=== PATIENT | female | born 1965 | race Two or more races ===

== ENCOUNTER → 2025-02-07 | Outpatient (CLI) | payer MEDICAID, SELFPAY ==
--- NOTE | 2025-02-07 15:00 | XR_ITS ---
Examination: PA lateral chest 2 views TECHNIQUE: Upright PA lateral chest 2 views Date and time: February 07, 2025 1518 hours Comparison July 16, 2024 INDICATIONS: Coughing chest pain beginning one week ago. FINDINGS: Normal heart size. Lungs are clear. Osseous structures are intact IMPRESSION: No active disease
== END | disposition home or self-care (01) ==
LOC: CDIM 14:47
DX: R05.3 Chronic cough (principal)
CPT/HCPCS: 71046

== ENCOUNTER 2025-03-14 09:40 | Emergency (ER) | payer MEDICAID, SELFPAY ==
[2025-03-14 09:41] VITALS: BMI 39.0
[2025-03-14 09:48] VITALS: BP 195/77; PULSE 68; RESP 16; TEMP 36.9; O2SAT 97
--- NOTE | 2025-03-14 09:52 | XR_ITS ---
Examination: Duplex scan of the lower extremity, unilateral left Date and time of exam: March 14, 2025 1204 hours INDICATIONS: Left leg pain beginning one month ago Technique: Duplex scan of the extremity veins using B-mode/grayscale imaging and Doppler spectral analysis and color flow Attention is directed to internal echogenicity, compression and augmentation involving these veins, color flow assessment, spectral analysis Findings: Major deep venous structures in the extremity demonstrate normal course and caliber. There is no evidence of deep vein thrombosis. Normal color flow and spectral analysis 11 mm popliteal cyst Impression: Negative for DVT..
--- NOTE | 2025-03-14 09:52 | XR_ITS ---
EXAMINATION: Ankle, left 3 views . Technique: Ankle AP, oblique, lateral 3 views Date and time of exam: March 14, 2025 0954 hours INDICATIONS: Left ankle swelling 1 month FINDINGS: Subacute healing fracture distal fibular shaft Bimalleolar soft tissue swelling Severe osteopenia IMPRESSION: Subacute healing fracture distal fibular shaft with satisfactory alignment
--- NOTE | 2025-03-14 09:52 | XR_ITS ---
Examination: Foot, left, 3 views Technique: AP, oblique, lateral views foot, 3 views Date and time of exam: March 14, 2025 0954 hours INDICATIONS: Onset foot swelling and pain one month ago FINDINGS: Severe osteopenia No acute foot fracture 10 mm plantar bony calcaneal spur IMPRESSION: Subacute healing fracture distal fibular shaft without significant displacement
--- NOTE | 2025-03-14 12:24 | PD.EDLOWEX ---
Lower Extremity Injury RME/HPI General Chief Complaint: Extremity Injury, Lower Stated Complaint: LEFT FOOT PAIN X1MO Time Seen by Provider: 03/14/25 09:42 Arrival date/time: 03/14/25 09:40 59-year-old female presents to the Emergency Department today for complaints of left foot and ankle pain ongoing x 1 month patient reports she has not seen her primary care doctor for this patient reports she cannot recall a definitive injury Limitations: no limitations Related Data Home Medications ?Medication ?Instructions ?Recorded ?Confirmed atorvastatin 20 mg tablet 20 mg PO QPM 08/09/20 08/09/20 cholecalciferol (vitamin D3) 125 125 mcg PO QDAY 08/09/20 08/09/20 mcg (5,000 unit) tablet (Vitamin D3) lisinopril 40 mg tablet 40 mg PO QDAY 08/09/20 08/09/20 metformin 1,000 mg tablet 1,000 mg PO BID 08/09/20 08/09/20 omeprazole 20 mg tablet,delayed 20 mg PO QDAY 08/09/20 08/09/20 release Previous Rx's ?Medication ?Instructions ?Recorded apixaban 2.5 mg tablet (Eliquis) 2.5 mg PO BID #20 tabs 08/10/20 insulin glargine 100 unit/mL (3 25 unit (0.25 mL) subcut BID #15 mL 08/15/20 mL) subcutaneous pen (Basaglar KwikPen U-100 Insulin) azithromycin 250 mg tablet See Rx Instructions PO .COMPLEX #6 08/16/20 (Zithromax Z-Finesse) tabs acetaminophen 500 mg tablet 1,000 mg (2 x 500 mg) PO Q6H PRN 08/28/23 (Tylenol Extra Strength) pain #30 tabs famotidine 40 mg tablet (Pepcid) 40 mg PO QDAY #30 tabs 08/28/23 Allergies Allergy/AdvReac Type Severity Reaction Status Date / Time No Known Allergies Allergy Verified 03/14/25 09:42 Review of Systems Review of Systems Systems Reviewed: All systems reviewed, normal except as documented Constitutional Constitutional: Reports system reviewed and no additional complaints, except as documented, Denies fever(s) and Denies headache(s) Eyes Eyes: Reports system reviewed and no additional complaints, except as documented and Denies blurry vision ENT Ears, Nose, Mouth, and Throat: Reports system reviewed and no additional complaints, except as documented, Denies headache(s), Denies nasal congestion and Denies nasal discharge Cardiovascular Cardiovascular: Reports system reviewed and no additional complaints, except as documented, Denies chest pain and Denies dyspnea Respiratory Respiratory: Reports system reviewed and no additional complaints, except as documented, Denies chest congestion, Denies cough and Denies dyspnea Gastrointestinal Gastrointestinal: Reports system reviewed and no additional complaints, except as documented and Denies abdominal pain Musculoskeletal Musculoskeletal: Reports system reviewed and no additional complaints, except as documented, Reports abnormal gait, Reports arthralgias, Denies deformity, Reports joint swelling, Denies numbness, Reports stiffness and Denies tingling Integumentary/Breasts Skin/Breast: Reports system reviewed and no additional complaints, except as documented and Denies rash Neurologic Neurologic: Reports system reviewed and no additional complaints, except as documented, Reports as per HPI, Reports abnormal gait, Denies headache(s), Denies numbness and Denies tingling Past Medical History Past Medical History NEUROLOGIC: Positive Neurological Disorders and Cerebrovascular Accident; Negative Seizures CARDIAC: Positive Cardiac Disorders, Atherosclerotic Heart Disease, Hypercholesterolemia and Hypertension; Negative Congestive Heart Failure RESPIRATORY: Negative Chronic Obstructive Pulmonary Disease (COPD) or Asthma GASTROINTESTINAL: Positive Gastrointestinal Disorders, Gastroesophageal Reflux Disease and Obesity GENITOURINARY: Positive Genitourinary Disorders; Negative Renal Disease REPRODUCTIVE: Positive Previous Pregnancies MUSCULOSKELETAL: Positive Musculoskeletal Disorders and Arthritis ENDOCRINE: Positive Endocrine Disorders and Diabetes Mellitus Type 2; Negative Diabetes Mellitus Type 1 or Hypothyroidism HEMATOLOGIC: Positive Anemia; Negative Blood Disorders or Sickle Cell Disease PSYCHO/SOCIAL: Positive Depression OTHER HISTORY: Negative Hospitalization, Autoimmune Disease, Shingles, Falls, Blood Transfusions, Blood Transfusion Reaction, Anesthesia Reactions, Chemotherapy, Radiation Therapy or Cancer Family History FAMILY HISTORY: Positive Family Cancer and Family Surgery; Negative Family Psychiatric Problems, Family Respiratory Disorders, Family Cardiac Disorders, Family Gastrointestinal Problems or Family Anesthesia Reaction Surgical History SURGICAL: Positive Hysterectomy, Tubal Ligation and Section Social History SMOKING STATUS: Never smoker SUBSTANCE USE: does not use ED Exam General Limitations: Present no limitations General appearance: Present alert and in no apparent distress Head Head exam: Present atraumatic Eye Eye exam: Present normal appearance, PERRL and EOMI ENT ENT exam: Present normal exam, normal oropharynx and mucous membranes moist Neck Neck exam: Present normal inspection, full ROM and trachea midline Chest Chest inspection: Present normal inspection and symmetric chest wall rise Respiratory Respiratory exam: Present normal lung sounds bilaterally Cardiovascular Cardiovascular exam: Present regular rate, normal rhythm and normal heart sounds Abdominal Exam Abdominal exam: Present soft and normal bowel sounds Extremities Exam Extremities exam: Present full ROM, tenderness (left ankle pain), normal capillary refill and joint swelling; Absent pedal edema or calf tenderness Back Exam Back exam: Present normal inspection and full ROM Neurological Exam Neurological exam: Present alert, oriented X3 and CN II-XII intact Psychiatric Psychiatric exam: Present normal affect and normal mood Skin Skin exam: Present warm, dry, intact and normal color Course Quality Measures none Orders Category Date Time Status US venous doppler LE LT Stat Exams 03/14/25 09:52 Completed XR ankle comp LT min 3V Stat Exams 03/14/25 09:52 Completed XR foot comp LT min 3V Stat Exams 03/14/25 09:52 Completed Vital Signs Vital signs: Vital Signs Temperature 98.5 F 03/14/25 09:48 Pulse Rate 68 03/14/25 09:48 Respiratory Rate 16 03/14/25 09:48 Blood Pressure 195/77 H 03/14/25 09:48 Pulse Oximetry (%) 97 03/14/25 09:48 Oxygen Delivery Method Room Air 03/14/25 09:48 02 sat 97% r.a wnl Procedures -ED Splint Fabrication: Clinician Made Type: Posterior Leg Reason for Splint: Pain Management, Minimize Deformities and Prevent Deformities Site condition: Pain Circulation Distal to Splint: Yes Movement Distal to Splint: Yes Senation Distal to Splint: Yes Tolerance: Tolerates Well Extremity Injury, Lower MDM Narrative MDM Narrative:: 59-year-old female presents to the Emergency Department today for complaints of left foot and ankle pain ongoing x 1 month patient reports she has not seen her primary care doctor for this patient reports she cannot recall a definitive injury On exam patient is swelling and pain to the left ankle Imaging of left ankle and foot obtained patient is a fracture distal fibula subacute Ultrasound obtained no acute DVT noted Patient placed in a posterior short leg splint given crutches Patient discharged home in no distress to follow-up with primary care doctor in the next 24 to 48 hours and for any worsening symptoms to return to the ER immediately Patient data External records reviewed:: [facility] previous records Clinical information provided by:: patient Social determinants that could affect healthcare access:: none Patient has the following chronic illnesses:: See history How is presenting disease/condition affected by chronic disease/condition?: uneffected by Evaluation data The following diagnostics were reviewed and interpreted by me:: radiology exam(s) Lab and/or radiology exams considered but not ordered:: Radiology obtain Interpretation Summary: Reviewed by me Medications / Prescriptions Medications or Prescriptions considered but not ordered:: Given Medication administrations:: Given Consultations Consultation(s) initiated? (list below): No Diagnosis Extremity Injury, Lower Differential Diagnosis: other (Foot fracture, foot sprain, ankle sprain, ankle fracture) Most likely diagnosis given after review of the tests above:: distal fibula fracture Admission Indicated Admission indicated?: not indicated Admission Request Was there a request for admission?: No Disposition Plan Disposition Plan: Discharge Discharge Attestation Discharge Attestation: The patient and all family members were given an opportunity to ask questions and understood the discharge instructions. Discharge instructions specifically effects, indications for sooner follow up or return to the emergency department, and the expected course of current diagnosis. Patient condition: Stable Discharge Plan Plan Patient Disposition: HOME (Self Care) Discharge Disposition comment: Stable Prescriptions/Referrals Prescriptions/Med Rec: No Action atorvastatin 20 mg Tablet 20 mg PO QPM metformin 1,000 mg Tablet 1,000 mg PO BID lisinopril 40 mg Tablet 40 mg PO QDAY omeprazole 20 mg Tablet,Delayed Release (Dr/Ec) 20 mg PO QDAY cholecalciferol (vitamin D3) [Vitamin D3] 125 mcg (5,000 unit) Tablet 125 mcg PO QDAY Eliquis 2.5 mg Tablet 2.5 mg PO BID Qty: 20 0RF Basaglar KwikPen U-100 Insulin 100 unit/mL (3 mL) insulin pen 25 unit subcut BID Qty: 15 0RF azithromycin [Zithromax Z-Finesse] 250 mg tablet See Rx Instructions .ROUTE .COMPLEX Qty: 6 0RF Rx Instructions: take 500 mg today (day 1), then 250 mg for 4 days (days 2-5) famotidine [Pepcid] 40 mg tablet 40 mg PO QDAY Qty: 30 0RF acetaminophen [Tylenol Extra Strength] 500 mg tablet 1,000 mg PO Q6H PRN (Reason: pain) Qty: 30 0RF Referrals: Elisabeth Horan FNP-C [Primary Care Provider] - 03/15/25 Problem List Clinical Impression: Fracture of distal fibula Patient/Caregiver Discharge Instructions Education Materials: [facility] [employer] [facility] Additional Instructions: Please follow up with your primary care doctor in the next 24-48hrs for any worsening symptoms return here immediately Please bring copy of your x-ray report your primary care doctor please remain nonweightbearing Print Language: Korean Stand Alone Forms: [employer] Award Info., Patient Portal Info Letter PA/FLOORPERSON Supervising Physician PA/FLOORPERSON Supervising Physician: Dr. menon
== END 2025-03-14 13:01 | disposition home or self-care (01) ==
PROVIDERS: Emergency Provider Emergency Medicine
DX: S82.832A Other fracture of upper and lower end of left fibula, initial encounter for closed fracture (principal); X58.XXXA Exposure to other specified factors, initial encounter; M71.22 Synovial cyst of popliteal space [Baker], left knee; M85.872 Other specified disorders of bone density and structure, left ankle and foot
CPT/HCPCS: 73610; 73630; 93971; 99284

== ENCOUNTER → 2025-06-26 | Outpatient (CLI) | payer MEDICAID, SELFPAY ==
--- NOTE | 2025-06-26 08:45 | XR_ITS ---
Examination: Tibia-Fibula, left , 2 views Technique: Tibia-fibula AP lateral 2 views Date and time of exam: June 26, 2025 0850 hours INDICATIONS: Lower leg pain months FINDINGS: Significant osteopenia. Healed fracture distal fibular shaft Mild narrowing tibiotalar joint 4 mm plantar bony calcaneal spur IMPRESSION: Healed fracture distal fibular shaft with satisfactory alignment
== END | disposition home or self-care (01) ==
PROVIDERS: PCP Podiatrist; Referring Provider Podiatrist; Visit Provider Podiatrist
DX: M79.662 Pain in left lower leg (principal); Z87.81 Personal history of (healed) traumatic fracture
CPT/HCPCS: 73590